=== PATIENT | female | born 1965 | race Caucasian/White ===

== ENCOUNTER → 2020-05-26 | Outpatient (CLI) | payer BC ==
[~2020-05-26] MED LIST: ANTIVERT 25MG T25 MG PO; ASPIRIN EC325 MG PO; ASPIRIN EC81 MG PO; CALCIUM600 MG PO; CARVEDILOL3.125 MG PO; COREG3.125 MG PO; ENDOCET 7.5-321 EACH PO; ESSENTIAL DAIL1 EACH PO; GLUCOPHAGE500 MG PO; HAIR, SKIN & N1 EACH PO; IMDUR ER TAB 3030 MG PO; ISOSORBIDE MONO30 MG PO; ISOSORBIDE MONO60 MG PO; LEXAPRO20 MG PO; LISINOPRIL10 MG PO; LOW DOSE ASPIRI81 MG PO; METHOCARBAMOL500 MG PO; NEXIUM20 MG PO; NEXIUM40 MG PO; NITROGLYCERIN0.4 MG PO; NITROSTAT0.4 MG SL; ONDANSETRON ODT4 MG PO; PERCOCET 10-321 EACH PO; PROTONIX40 MG PO; VITAMIN D PO; WELLBUTRIN XL150 MG PO; XARELTO10 MG PO; ZANTAC300 MG PO
[2020-05-26 07:48] LABS: HEMOGLOBIN 13.9 gm/dl (12.3-15.3); RED BLOOD COUNT 4.35 M/UL (4.00-5.10)
[2020-05-26 08:01] LABS: BUN/CREATININE RATIO 26 (0-10)
[2020-05-27 12:14] LABS: CREATININE, URINE 160.6 mg/dL (Not Estab.)
== END ==
LOC: LAB 06:31
PROVIDERS: Family Medicine
DX: E11.9 Type 2 diabetes mellitus without complications (principal); E55.9 Vitamin D deficiency, unspecified; E78.2 Mixed hyperlipidemia; M54.5 Low back pain; G89.29 Other chronic pain; M51.36 Other intervertebral disc degeneration, lumbar region; N20.0 Calculus of kidney
CPT/HCPCS: 36415; 72110; 80053; 80061; 82043; 82570; 85027

== ENCOUNTER 2020-06-14 02:24 | Emergency (ER) | payer BC ==
[~2020-06-14] VITALS: Ht 162.6 cm; Wt 76.2 kg
[~2020-06-14 02:24] MED LIST changes: -ASPIRIN EC325 MG PO; -ASPIRIN EC81 MG PO; -CARVEDILOL3.125 MG PO; -COREG3.125 MG PO; -ENDOCET 7.5-321 EACH PO; -HAIR, SKIN & N1 EACH PO; -ISOSORBIDE MONO30 MG PO; -ISOSORBIDE MONO60 MG PO; -LOW DOSE ASPIRI81 MG PO; -METHOCARBAMOL500 MG PO; -NEXIUM40 MG PO; -NITROGLYCERIN0.4 MG PO; -VITAMIN D PO; -WELLBUTRIN XL150 MG PO
[2020-06-14 02:58] LABS: HEMOGLOBIN 14.5 gm/dl (12.3-15.3); RED BLOOD COUNT 4.43 M/UL (4.00-5.10); WHITE BLOOD COUNT 7.9 K/UL (4.5-11.0)
[2020-06-14 03:18] LABS: BUN/CREATININE RATIO 25 (0-10)
[2020-06-14] MEDS ORDERED: METHOCARBAMOL500 MG PO (16:02)
[2020-06-14] MEDS ORDERED: CARVEDILOL3.125 MG PO (16:10)
[2020-06-14] MEDS ORDERED: ASPIRIN EC81 MG PO (16:10)
[2020-06-14] MEDS ORDERED: ISOSORBIDE MONO30 MG PO (16:10)
[2020-07-05] MEDS ORDERED: VITAMIN D PO (09:09)
[2020-07-05] MEDS ORDERED: HAIR, SKIN & N1 EACH PO (09:10)
[2020-09-23] MEDS ORDERED: ISOSORBIDE MONO30 MG PO (14:26)
[2020-09-23] MEDS ORDERED: WELLBUTRIN XL150 MG PO (14:27)
[2020-09-23] MEDS ORDERED: LOW DOSE ASPIRI81 MG PO (14:28)
[2020-09-23] MEDS ORDERED: COREG3.125 MG PO (14:28)
[2020-09-23] MEDS ORDERED: NITROGLYCERIN0.4 MG PO (14:32)
== END 2020-06-14 16:45 | disposition home or self-care (01) ==
LOC: ER1 02:24 → CDU 04:18 → ER1 04:18 → CDU 16:45
PROVIDERS: Emergency Medicine
DX: R07.89 Other chest pain (principal); E11.9 Type 2 diabetes mellitus without complications; I10 Essential (primary) hypertension; I25.2 Old myocardial infarction; E78.5 Hyperlipidemia, unspecified; K21.9 Gastro-esophageal reflux disease without esophagitis; K27.9 Peptic ulcer, site unspecified, unspecified as acute or chronic, without hemorrhage or perforation; Z90.49 Acquired absence of other specified parts of digestive tract; Z88.0 Allergy status to penicillin; Z88.1 Allergy status to other antibiotic agents; Z88.2 Allergy status to sulfonamides; Z82.49 Family history of ischemic heart disease and other diseases of the circulatory system; Z79.899 Other long term (current) drug therapy; Z79.82 Long term (current) use of aspirin; Z90.710 Acquired absence of both cervix and uterus; Z20.822 Contact with and (suspected) exposure to COVID-19
CPT/HCPCS: 71045; 78452; 80053; 82550; 82553; 82962; 83735; 83874; 84484; 85025; 85379; 93005; 93017; 99285; A9502; G0378; U0002

== ENCOUNTER → 2020-07-05 | Day surgery (SDC) | payer BC ==
[~2020-07-05] MED LIST changes: +ASPIRIN EC325 MG PO; +ASPIRIN EC81 MG PO; +CARVEDILOL3.125 MG PO; +COREG3.125 MG PO; +ENDOCET 7.5-321 EACH PO; +HAIR, SKIN & N1 EACH PO; +ISOSORBIDE MONO30 MG PO; +ISOSORBIDE MONO60 MG PO; +LOW DOSE ASPIRI81 MG PO; +METHOCARBAMOL500 MG PO; +NEXIUM40 MG PO; +NITROGLYCERIN0.4 MG PO; +VITAMIN D PO; +WELLBUTRIN XL150 MG PO
== END | disposition home or self-care (01) ==
LOC: OR 08:00
PROVIDERS: Internal Medicine Gastroenterology
PROC: 0DJD8ZZ Inspection of Lower Intestinal Tract, Via Natural or Artificial Opening Endoscopic (ICD-10-PCS; 2020-07-05)
PROC: 0DB38ZX Excision of Lower Esophagus, Via Natural or Artificial Opening Endoscopic, Diagnostic (ICD-10-PCS; principal; 2020-07-05 10:00)
PROC: 0DB78ZX Excision of Stomach, Pylorus, Via Natural or Artificial Opening Endoscopic, Diagnostic (ICD-10-PCS; 2020-07-05 10:00)
DX: Z12.11 Encounter for screening for malignant neoplasm of colon (principal); K21.00 Gastro-esophageal reflux disease with esophagitis, without bleeding; K64.1 Second degree hemorrhoids; K22.70 Barrett's esophagus without dysplasia; K44.9 Diaphragmatic hernia without obstruction or gangrene; K22.8 Other specified diseases of esophagus; K57.30 Diverticulosis of large intestine without perforation or abscess without bleeding; I10 Essential (primary) hypertension; E11.9 Type 2 diabetes mellitus without complications; M81.0 Age-related osteoporosis without current pathological fracture; I25.2 Old myocardial infarction; E66.3 Overweight; Z68.29 Body mass index [BMI] 29.0-29.9, adult; Z88.0 Allergy status to penicillin; Z88.1 Allergy status to other antibiotic agents; Z88.2 Allergy status to sulfonamides; Z88.8 Allergy status to other drugs, medicaments and biological substances; Z79.82 Long term (current) use of aspirin; Z79.84 Long term (current) use of oral hypoglycemic drugs; Z79.899 Other long term (current) drug therapy
CPT/HCPCS: 82962; J7040

== ENCOUNTER 2020-08-20 06:26 | Observation (INO) | payer BC ==
[~2020-08-20] VITALS: Ht 162.6 cm; Wt 74.8 kg
[~2020-08-20 06:26] MED LIST changes: -ASPIRIN EC325 MG PO; -COREG3.125 MG PO; -ENDOCET 7.5-321 EACH PO; -ISOSORBIDE MONO60 MG PO; -LOW DOSE ASPIRI81 MG PO; -NEXIUM40 MG PO; -NITROGLYCERIN0.4 MG PO; -WELLBUTRIN XL150 MG PO
[2020-08-20 08:19] LABS: HEMOGLOBIN 13.2 gm/dl (12.3-15.3); RED BLOOD COUNT 4.08 M/UL (4.00-5.10); WHITE BLOOD COUNT 7.2 K/UL (4.5-11.0)
[2020-08-20 08:47] LABS: BUN/CREATININE RATIO 21 (0-10)
[2020-08-20] MEDS ORDERED: ISOSORBIDE MONO60 MG PO (14:00)
[2020-08-20] MEDS ORDERED: CARVEDILOL3.125 MG PO (15:51)
[2020-08-20] MEDS ORDERED: NEXIUM40 MG PO (16:00)
[2020-09-23] MEDS ORDERED: ISOSORBIDE MONO30 MG PO (14:26)
[2020-09-23] MEDS ORDERED: WELLBUTRIN XL150 MG PO (14:27)
[2020-09-23] MEDS ORDERED: COREG3.125 MG PO (14:28)
[2020-09-23] MEDS ORDERED: LOW DOSE ASPIRI81 MG PO (14:28)
[2020-09-23] MEDS ORDERED: NITROGLYCERIN0.4 MG PO (14:32)
== END 2020-08-20 16:03 | disposition home or self-care (01) ==
LOC: ER1 06:26 → CDU 10:19 → M/S 13:25
PROVIDERS: Family Medicine; ADMIT Internal Medicine
PROC: 4A023N8 Measurement of Cardiac Sampling and Pressure, Bilateral, Percutaneous Approach (ICD-10-PCS; principal; 2020-08-20)
PROC: B2111ZZ Fluoroscopy of Multiple Coronary Arteries using Low Osmolar Contrast (ICD-10-PCS; 2020-08-20)
DX: I25.110 Atherosclerotic heart disease of native coronary artery with unstable angina pectoris (principal); I10 Essential (primary) hypertension; I25.2 Old myocardial infarction; E11.9 Type 2 diabetes mellitus without complications; K27.9 Peptic ulcer, site unspecified, unspecified as acute or chronic, without hemorrhage or perforation; F41.9 Anxiety disorder, unspecified; F32.9 Major depressive disorder, single episode, unspecified; R94.39 Abnormal result of other cardiovascular function study; K21.9 Gastro-esophageal reflux disease without esophagitis; Z20.822 Contact with and (suspected) exposure to COVID-19; Z87.891 Personal history of nicotine dependence; Z79.82 Long term (current) use of aspirin; Z79.84 Long term (current) use of oral hypoglycemic drugs; Z79.899 Other long term (current) drug therapy; Z88.0 Allergy status to penicillin; Z88.1 Allergy status to other antibiotic agents; Z88.2 Allergy status to sulfonamides; Z88.8 Allergy status to other drugs, medicaments and biological substances
CPT/HCPCS: 71045; 80053; 82550; 82553; 83874; 84484; 85025; 93005; 99152; 99285; C1769; C1887; C1894; G0378; J1644; J2250; J3010; J7040; Q9967; U0002

== ENCOUNTER → 2020-09-30 | Outpatient (CLI) | payer BC ==
[~2020-09-30] MED LIST changes: +ASPIRIN EC325 MG PO; +COREG3.125 MG PO; +ENDOCET 7.5-321 EACH PO; +ISOSORBIDE MONO60 MG PO; +LOW DOSE ASPIRI81 MG PO; +NEXIUM40 MG PO; +NITROGLYCERIN0.4 MG PO; +WELLBUTRIN XL150 MG PO
[2020-09-30 12:11] LABS: HEMOGLOBIN 13.8 gm/dl (12.3-15.3); RED BLOOD COUNT 4.12 M/UL (4.00-5.10); WHITE BLOOD COUNT 7.2 K/UL (4.5-11.0)
[2020-09-30 12:42] LABS: BUN/CREATININE RATIO 22 (0-10)
== END ==
LOC: OPSV2 10:07
PROVIDERS: Orthopaedic Surgery
DX: Z01.818 Encounter for other preprocedural examination (principal); Z88.0 Allergy status to penicillin; Z88.2 Allergy status to sulfonamides; Z88.8 Allergy status to other drugs, medicaments and biological substances
CPT/HCPCS: 80048; 83036; 85027; 87081

== ENCOUNTER → 2020-10-13 | Outpatient (CLI) | payer BC ==
[2020-10-13 14:52] LABS: BUN/CREATININE RATIO 20 (0-10)
== END ==
LOC: LAB 13:23
PROVIDERS: Orthopaedic Surgery
DX: Z01.812 Encounter for preprocedural laboratory examination (principal)
CPT/HCPCS: 36415; 80048; 86850; 86900; 86901

== ENCOUNTER 2020-10-14 06:01 | Day surgery (SDC) | payer BC ==
[~2020-10-14] VITALS: Ht 162.6 cm; Wt 73.9 kg
[~2020-10-14 06:01] MED LIST changes: -ASPIRIN EC325 MG PO; -ENDOCET 7.5-321 EACH PO
[2020-10-14] MEDS ORDERED: ASPIRIN EC325 MG PO (08:51)
[2020-10-14] MEDS ORDERED: ENDOCET 7.5-321 EACH PO (08:51)
[2020-10-15 04:37] LABS: HEMOGLOBIN 12.3 gm/dl (12.3-15.3); RED BLOOD COUNT 3.64 M/UL (4.00-5.10); WHITE BLOOD COUNT 12.5 K/UL (4.5-11.0)
[2020-10-15 04:58] LABS: BUN/CREATININE RATIO 15 (0-10)
== END 2020-10-15 14:09 | disposition home or self-care (01) ==
LOC: OR 06:01 → M/S 11:28 → OR 12:00
PROVIDERS: Orthopaedic Surgery
PROC: 3E0T3BZ Introduction of Anesthetic Agent into Peripheral Nerves and Plexi, Percutaneous Approach (ICD-10-PCS; 2020-10-14)
PROC: 3E0T3BZ Introduction of Anesthetic Agent into Peripheral Nerves and Plexi, Percutaneous Approach (ICD-10-PCS; 2020-10-14)
PROC: 0SRC0L9 Replacement of Right Knee Joint with Medial Unicondylar Synthetic Substitute, Cemented, Open Approach (ICD-10-PCS; principal; 2020-10-14 07:30)
DX: M17.11 Unilateral primary osteoarthritis, right knee (principal); G89.18 Other acute postprocedural pain; I10 Essential (primary) hypertension; E11.9 Type 2 diabetes mellitus without complications; I25.2 Old myocardial infarction; I25.10 Atherosclerotic heart disease of native coronary artery without angina pectoris; K76.0 Fatty (change of) liver, not elsewhere classified; K22.70 Barrett's esophagus without dysplasia; K21.9 Gastro-esophageal reflux disease without esophagitis; H91.91 Unspecified hearing loss, right ear; E04.9 Nontoxic goiter, unspecified; Z20.822 Contact with and (suspected) exposure to COVID-19; Z88.0 Allergy status to penicillin; Z88.1 Allergy status to other antibiotic agents; Z88.2 Allergy status to sulfonamides; Z88.8 Allergy status to other drugs, medicaments and biological substances; Z79.84 Long term (current) use of oral hypoglycemic drugs; Z79.82 Long term (current) use of aspirin; Z79.899 Other long term (current) drug therapy; Z95.5 Presence of coronary angioplasty implant and graft; Z96.652 Presence of left artificial knee joint
CPT/HCPCS: 36415; 73560; 80048; 82962; 85027; 97116-GP-CQ; 97161; 97165; C1713; C1776; J0592; J0690; J1100; J1885; J2001; J2250; J2270; J2400; J2405; J2704; J2795; J3010; J3370; J7120

== ENCOUNTER → 2021-04-04 | Outpatient (CLI) | payer BC ==
[~2021-04-04] MED LIST changes: +ASPIRIN EC325 MG PO; +ENDOCET 7.5-321 EACH PO
== END ==
LOC: EXRD 10:47
DX: J20.9 Acute bronchitis, unspecified (principal); J02.9 Acute pharyngitis, unspecified
CPT/HCPCS: 71046

== ENCOUNTER 2021-05-31 14:51 | Emergency (ER) | payer BC ==
[2021-05-31 15:30] LABS: HEMOGLOBIN 12.9 gm/dl (12.3-15.3); RED BLOOD COUNT 3.94 M/UL (4.00-5.10); WHITE BLOOD COUNT 5.8 K/UL (4.5-11.0)
[2021-05-31 15:52] LABS: BUN/CREATININE RATIO 23 (0-10)
== END 2021-05-31 20:30 | disposition home or self-care (01) ==
LOC: ER1 14:51
PROVIDERS: Nurse Practitioner
DX: R07.89 Other chest pain (principal); I25.2 Old myocardial infarction; E11.9 Type 2 diabetes mellitus without complications; E78.5 Hyperlipidemia, unspecified; I10 Essential (primary) hypertension; Z87.442 Personal history of urinary calculi; Z96.653 Presence of artificial knee joint, bilateral; Z87.891 Personal history of nicotine dependence; Z79.82 Long term (current) use of aspirin; Z88.8 Allergy status to other drugs, medicaments and biological substances; Z88.0 Allergy status to penicillin; Z88.2 Allergy status to sulfonamides; Z88.1 Allergy status to other antibiotic agents
CPT/HCPCS: 71045; 71260; 80048; 81001; 82550; 82553; 83874; 84484; 85025; 85379; 93005; 96374; 99285; Q9967

== ENCOUNTER → 2022-01-23 | Outpatient (CLI) | payer BC ==
[2022-01-23 09:53] LABS: HEMOGLOBIN 13.1 gm/dl (12.3-15.3); RED BLOOD COUNT 4.01 M/UL (4.00-5.10); WHITE BLOOD COUNT 6.3 K/UL (4.5-11.0)
[2022-01-23 10:19] LABS: BUN/CREATININE RATIO 16 (0-10)
[2022-01-24 11:14] LABS: CREATININE, URINE 121.4 mg/dL (Not Estab.)
== END ==
LOC: LAB 09:13
PROVIDERS: Family Medicine
DX: E55.9 Vitamin D deficiency, unspecified (principal); E78.2 Mixed hyperlipidemia; E11.9 Type 2 diabetes mellitus without complications; Z79.899 Other long term (current) drug therapy
CPT/HCPCS: 36415; 80053; 82043; 82570; 82607; 85027